=== PATIENT | female | born 2005 | race Caucasian/White ===

== ENCOUNTER 2024-12-12 20:11 | Inpatient (IN) ==
[2024-12-12 20:33] LABS: AMNISURE ROM TEST THERE IS A RUPTURE (NO RUPTURE); APPEARANCE,URINE CLEAR (CLEAR); BLOOD/HEMOGLOBIN,URINE 1+ (NEGATIVE); LEUKOCYTE ESTERASE ,URINE 1+ (NEGATIVE); NITRITES,URINE NEGATIVE (NEGATIVE)
[2024-12-12 20:35] VITALS: BMI 34.3
[2024-12-12 20:42] LABS: SQUAMOUS EPITHELIAL CELL,UR MANY /HPF (NEGATIVE)
[2024-12-12 21:10] LABS: RED CELL DISTRIBUTION WIDTH 12.7 % (11.6-16.5)
[2024-12-12 21:14] LABS: MEAN PLATELET VOLUME 10.5 fL (7.4-11.0)
[2024-12-12] MEDS ORDERED: NUBAIN INJ 20 MG AMP IVP PRN (21:17)
[2024-12-12 21:22] LABS: COR CA(FOR HYPOALB) 9.5 mg/dL (8.5-10.1); CREATININE 0.55 mg/dL (0.55-1.02); eGFR NON BLACK RACES > 60 (>60)
[2024-12-12] MEDS ORDERED: LR 1,000 ML IV 1,000 ML IV ONE (21:57)
[2024-12-12] MEDS: D5 1/2 NS 1,000 ML 1,000 ML IV SCH (22:00)
[2024-12-12] MEDS: LR 1,000 ML IV 1,000 ML IV ONE (22:05)
[2024-12-12] MEDS: AMPICILLIN VIAL 2 GRAM ONE (22:05)
[2024-12-12] MEDS: OXYTOCIN 20 UNIT/1,000 ML-NS 20 UNIT/1,000 ML PLAST..BAG IV PRN (22:19)
[2024-12-12] MEDS: NUBAIN INJ 10 MG AMP ONE (23:21)
[2024-12-13] MEDS: AMPICILLIN VIAL 1 GRAM ONE ×2 (01:54→11:27)
[2024-12-13] MEDS: FENTANYL VIAL INJ 100 mcg ONE (02:05)
[2024-12-13] MEDS: NAROPIN EPIDURAL 0.2% 100 ML ONE (02:05)
[2024-12-13] MEDS: LR 1,000 ML IV 1,000 ML IV ONE (02:06)
[2024-12-13] MEDS: NS 100 ML IV 100 ML ONE ×3 (03:39→11:28)
[2024-12-13] MEDS: AMPICILLIN VIAL 1 GRAM 1 G in NS 50 ML IV + SPIKE MINIBAG* 50 ML IV SCH (03:39)
[2024-12-13] MEDS ORDERED: PITOCIN ONE (04:03)
[2024-12-13] MEDS: BETADINE SOLN ONE (04:09)
--- NOTE | 2024-12-13 06:52 | DR.OB ---
OB QUICK NOTE Assessment/Plan (1) Rupture of membranes with clear amniotic fluid: Assessment/Plan: L&D 12/13/24 at 6:35am S-No complaint. s/p epidural. O-Afebrile,VSS [id number] with good LTV, +accel, no decel. CTX=q 1 1/2 min., about 45-65mmHg CVX=8-9cm/100%/0/VTX A-IUP at term with SROM +GBS P-Continue pitocin induction Continue IV ABX in labor for GBS Anticipate (2) Group B streptococcal carriage complicating :
[2024-12-13] MEDS ORDERED: ZOFRAN INJ 4 MG VIAL ONE (07:05)
[2024-12-13] MEDS: ZOFRAN INJ 4 MG VIAL IVP PRN (07:11)
[2024-12-13] MEDS: PITOCIN IVP ONE (08:22)
--- NOTE | 2024-12-13 08:32 | DR.OB ---
OB QUICK NOTE Assessment/Plan (1) Rupture of membranes with clear amniotic fluid: Assessment/Plan: Delivery Note [employer] 12/13/24 at 8:19 am Patient complete and pushing. Mother and stable. Head delivered over intact perineum. No nuchal cord. Nose and mouth bulb suctioned. Body delivered over intact perineum. Cord clamped x 2 and cut. handed to attendant. Cord sent for gases. Placenta delivered spontaneously / intact / 3 vessel cord. No CVX / vaginal / perineal tears noted. Viable male infant deliverd by , VTX/OA, wt=7'15" and 8/9, stable to NBN. Mother stable to RR. MAN=280zs. (2) Group B streptococcal carriage complicating :
[2024-12-13] MEDS ORDERED: AMBIEN PO PRN (08:58)
[2024-12-13] MEDS ORDERED: DERMOPLAST PAIN RELIEF SPRAY TOP PRN (08:58)
[2024-12-13] MEDS ORDERED: ADACEL or BOOSTRIX TDaP VACCINE IM ONE (08:58)
[2024-12-13] MEDS ORDERED: MOTRIN TAB 800 MG PO PRN (08:58)
[2024-12-13] MEDS: OXYTOCIN 20 UNIT/1,000 ML-NS 20 UNIT/1,000 ML PLAST..BAG IV SCH (09:23)
[2024-12-13] MEDS: PROTONIX TAB 40 MG PO SCH (11:22)
[2024-12-13] MEDS: PRENATAL PLUS PO SCH (11:23)
[2024-12-13] MEDS: MOTRIN TAB 800 MG PO PRN (11:23)
[2024-12-13] MEDS: PITOCIN ONE (11:28)
[2024-12-13] MEDS: PERCOCET TAB 5/325 MG PO PRN (15:40)
[2024-12-13] MEDS: MILK OF MAGNESIA PO PRN (22:09)
[2024-12-14 08:31] VITALS: RESP 18; TEMP 97.6; O2SAT 100
[2024-12-14 16:53] VITALS: BP 127/75; PULSE 74
== END 2024-12-14 13:05 | disposition home or self-care (01) | DRG 806 ==
LOC: ER 20:11 → LD 21:10 → MED/SURG 12-13 09:55
PROVIDERS: ADMIT Specialist; ATTEND Specialist
DX: O99.613 Diseases of the digestive system complicating pregnancy, third trimester; K21.9 Gastro-esophageal reflux disease without esophagitis; N87.0 Mild cervical dysplasia; O99.892 Other specified diseases and conditions complicating childbirth; Z3A.38 38 weeks gestation of pregnancy; O98.82 Other maternal infectious and parasitic diseases complicating childbirth; Z37.0 Single live birth; O47.1 False labor at or after 37 completed weeks of gestation; B95.1 Streptococcus, group B, as the cause of diseases classified elsewhere